=== PATIENT | male | born 1950 | race Two or more races ===

== ENCOUNTER 2020-10-31 03:06 | Emergency (ER) | payer OTHER ==
[~2020-10-31] VITALS: Ht 190.5 cm; Wt 69.9 kg
--- NOTE | 2020-10-31 03:08 | NUR ---
BIBEMS FROM HOME C/O VOMITING BLOOD, PLACED IN BED 8 ON MONITOR AND PULSE OX. PT NOT VOMITING UPON ARRIVAL. VSS. IV PLACED IN RAC 18G, BLOOD COLLECTED, SENT TO LAB. AT BEDSIDE.
[2020-10-31] MEDS ORDERED: ONDANSETRON HCL/PF 4 MG/2 ML VIAL ONE (03:24)
[2020-10-31] MEDS ORDERED: PANTOPRAZOLE 40 MG VIAL ONE (03:24)
[2020-10-31] MEDS ORDERED: PANTOPRAZOLE 40 MG VIAL IV ONE (03:30)
[2020-10-31] MEDS ORDERED: IV NS 0.9% 1,000 ML IV ONE (03:30)
[2020-10-31] MEDS ORDERED: ONDANSETRON HCL/PF 4 MG/2 ML VIAL IV ONE (03:30)
[2020-10-31 03:33] LABS: BASOPHILS % (AUTO) 0.7 % (0.0-2.0); EOSINOPHILS % (AUTO) 4.7 % (0.0-6.0); HEMATOCRIT 36 % (39-51); HEMOGLOBIN 11.9 g/dL (13.5-17.5); LYMPHOCYTES # (AUTO) 1.6 /CMM (0.8-4.8); LYMPHOCYTES % (AUTO) 43.8 % (20.0-44.0); MEAN CORPUSCULAR HGB CONC 33 g/dl (31.0-36.0); MEAN CORPUSCULAR VOLUME 78 fL (80-96); MONOCYTES # (AUTO) 0.2 /CMM (0.1-1.30); MONOCYTES % (AUTO) 5.2 % (2.0-12.0); NEUTROPHILS # (AUTO) 1.6 /CMM (1.8-8.9); NEUTROPHILS % (AUTO) 45.6 % (43.0-81.0); PLATELET COUNT (AUTO) 239 /CMM (150-450); RED BLOOD CELL COUNT(AUTO) 4.64 MIL/uL (4.5-6.0); WHITE BLOOD COUNT (AUTO) 3.6 K/uL (4.3-11.0)
[2020-10-31 03:46] LABS: BILIRUBIN,DIRECT 0.2 mg/dL (0.0-0.2); BILIRUBIN,TOTAL 0.5 mg/dL (0.2-1.0); CALCIUM, SERUM 10.9 mg/dL (8.5-10.1); CREATININE 0.9 mg/dL (0.6-1.3); POTASSIUM 3.8 mmol/L (3.5-5.1); TOTAL PROTEIN, SERUM 7.8 g/dL (6.4-8.2)
[2020-10-31] MEDS ORDERED: MORPHINE SULFATE INJ 4 MG/ML DISP.SYRIN ONE (04:32)
[2020-10-31] MEDS ORDERED: MORPHINE SULFATE INJ 2 MG/ML DISP.SYRIN IV ONE (05:00)
--- NOTE | 2020-10-31 05:32 | NUR ---
CALLED [facility]
--- NOTE | 2020-10-31 05:39 | NUR ---
DR. PETER SPEAKING WITH [facility], DR. MARSH
[2020-10-31] MEDS ORDERED: VANCOMYCIN 1 GM VIAL ONE (05:52)
[2020-10-31] MEDS ORDERED: PIPERACILLIN /TAZOBACTAM 3.375 G VIAL IV ONE (05:52)
--- NOTE | 2020-10-31 05:59 | NUR ---
SPOKE TO , AWARE OF PLAN OF CARE.
[2020-10-31] MEDS ORDERED: PIPERACILLIN /TAZOBACTAM 3.375 G in IV D5W 50 ML IV ONE (06:00)
[2020-10-31] MEDS ORDERED: VANCOMYCIN 1 GM in IV D5W 250 ML IV ONE (06:00)
--- NOTE | 2020-10-31 06:46 | NUR ---
TRANSFER INFORMATION:PT WILL BE TRANSFERRED TO [facility] PER INSURANCE REQUEST ACCEPTING MD: DR. TURCIOS NUMBER FOR REPORT: [phone] [facility] ETA [id number]
--- NOTE | 2020-10-31 06:51 | NUR ---
REPORT GIVEN TO ARTURO ANGLIN FOR DAVID
--- NOTE | 2020-10-31 07:37 | NUR ---
[id number] is on unit, picking up patient going to [facility], patient in stable condition, at bedside, all belongings with , report given to [place], transfer papers done and given to LINNETTE Lemons from ambulance.
[2020-10-31 07:50] VITALS: BP 105/58
== END 2020-10-31 07:51 | disposition short-term general hospital (02) ==
LOC: ER 03:10
DX: J18.9 Pneumonia, unspecified organism (principal); Z20.822 Contact with and (suspected) exposure to COVID-19; E78.5 Hyperlipidemia, unspecified; Z86.73 Personal history of transient ischemic attack (TIA), and cerebral infarction without residual deficits; E11.9 Type 2 diabetes mellitus without complications; I10 Essential (primary) hypertension; Z87.09 Personal history of other diseases of the respiratory system; R04.2 Hemoptysis
CPT/HCPCS: 36415; 71045; 74176; 80048; 80076; 84484; 85025; 85730; 86850; 87040 ×2; 87081; 87426; 93005; 96361; 96365; 96367; 96375; 99285; C9113; C9803; J2270; J2405; J2543; J3370; J7030; J7060

== ENCOUNTER 2020-11-04 13:53 | Emergency (ER) | payer OTHER ==
[~2020-11-04] VITALS: Ht 190.5 cm; Wt 71.2 kg
--- NOTE | 2020-11-04 14:10 | NUR ---
ALIREZA SMITH From Home "AMS/Seizure/weakness- Family described a tonic/clonic seizure like activity". The patient is alert and oriented to self. Speech clear. Denies pain. In room air and denies SOB. Respiration regular and unlabored. Attached to the monitor. Warm blanket provided for comfort. Will continue to monitor the patient.
[2020-11-04 15:05] LABS: BASOPHILS % (AUTO) 0.8 % (0.0-2.0); EOSINOPHILS % (AUTO) 4.4 % (0.0-6.0); HEMATOCRIT 33 % (39-51); HEMOGLOBIN 10.7 g/dL (13.5-17.5); LYMPHOCYTES # (AUTO) 1.2 /CMM (0.8-4.8); MEAN CORPUSCULAR HGB CONC 32 g/dl (31.0-36.0); MEAN CORPUSCULAR VOLUME 78 fL (80-96); MONOCYTES # (AUTO) 0.3 /CMM (0.1-1.30); MONOCYTES % (AUTO) 7.1 % (2.0-12.0); NEUTROPHILS # (AUTO) 2.3 /CMM (1.8-8.9); NEUTROPHILS % (AUTO) 58.7 % (43.0-81.0); PLATELET COUNT (AUTO) 257 /CMM (150-450)
--- NOTE | 2020-11-04 15:06 | NUR ---
The patient is taken to CT in stable condition.
--- NOTE | 2020-11-04 15:20 | NUR ---
The patient is back from CT in stable condition.
--- NOTE | 2020-11-04 15:23 | NUR ---
LAB CALLED. LACTIC ACID IS 2.7
[2020-11-04 15:31] LABS: ALANINE AMINOTRANSFERASE 9 U/L (12-78); ALBUMIN 2.7 g/dL (3.4-5.0); ALKALINE PHOSPHATASE 73 U/L (46-116); ASPARTATE AMINOTRANSFERASE 17 U/L (15-37); BILIRUBIN,DIRECT 0.2 mg/dL (0.0-0.2); BILIRUBIN,TOTAL 0.4 mg/dL (0.2-1.0); CALCIUM, SERUM 10.2 mg/dL (8.5-10.1); CARBON DIOXIDE 28 mmol/L (21-32); CHLORIDE 98 mmol/L (98-107); CREATININE 0.9 mg/dL (0.6-1.3); GLUCOSE 203 mg/dL (74-106); POTASSIUM 3.4 mmol/L (3.5-5.1); SODIUM SERUM 134 mmol/L (136-145); TOTAL PROTEIN, SERUM 7.2 g/dL (6.4-8.2); UREA NITROGEN, BLOOD 8 mg/dL (7-18)
[2020-11-04 15:38] LABS: THYROID STIMULATING HORMONE 0.991 uIU/mL (0.358-3.74)
--- NOTE | 2020-11-04 15:44 | NUR ---
CALLED [facility] AND OPENED A CASE
[2020-11-04 15:56] LABS: SERUM AMMONIA 0 umol/L (11-32)
[2020-11-04] MEDS ORDERED: LEVETIRACETAM (500MG) 1,000 MG in IV NS 0.9% 100 ML IV SCH (16:00)
--- NOTE | 2020-11-04 16:27 | NUR ---
CALLED [facility] FOR ER CONSULT
[2020-11-04] MEDS ORDERED: IV NS 0.9% 1,000 ML BAG IV ONE (16:30)
--- NOTE | 2020-11-04 17:03 | NUR ---
[facility] STARTED LATE BECAUSE THE PATIENT AND THE WERE REFUSING IT INITIALLY.
--- NOTE | 2020-11-04 17:10 | NUR ---
CALLED [facility] TO UPDATE THE VITALS
--- NOTE | 2020-11-04 17:23 | NUR ---
COVID SWAB DONE AND SENT TO THE LAB
[2020-11-04 17:32] LABS: BILIRUBIN,URINE NEGATIVE (NEGATIVE); COLOR,URINE YELLOW (YELLOW); LEUKOCYTE ESTERASE ,URINE NEGATIVE (NEGATIVE); NITRITE, URINE NEGATIVE (NEGATIVE); PH,URINE 5.5 (5.0-8.0); PROTEIN,URINE TRACE mg/dl (NEGATIVE); UGLUCOSE NEGATIVE (NEGATIVE)
[2020-11-04 17:42] LABS: BACTERIA,URINE RARE /HPF (None Seen); MUCUS,URINE Few /LPF (None Seen)
[2020-11-04 17:43] LABS: URINE AMORPHOUS URATE Few /HPF (None Seen)
--- NOTE | 2020-11-04 18:46 | NUR ---
CALLED [facility] FOR TRANSFER INFO. THEY ARE STILL WORKING ON IT AND WILL CALL BACK
--- NOTE | 2020-11-04 19:20 | NUR ---
Report given to Estela from [facility]
--- NOTE | 2020-11-04 19:27 | NUR ---
TRANSFER INFORMATION: PT WILL BE TRANSFERRED TO [facility] PER INSURANCE REQUEST ACCEPTING MD: DR. STEWART NUMBER FOR REPORT: [phone] BED ASSIGNMENT: [id number] [facility] ETA [id number]
--- NOTE | 2020-11-04 19:33 | NUR ---
The patient is transfered to [facility] in stable condition.
[2020-11-04 20:07] VITALS: BP 102/56
== END 2020-11-04 19:40 | disposition short-term general hospital (02) ==
LOC: ER 13:58
DX: R56.9 Unspecified convulsions (principal); E87.2 Acidosis; E11.65 Type 2 diabetes mellitus with hyperglycemia; R94.31 Abnormal electrocardiogram [ECG] [EKG]; R29.810 Facial weakness; Z86.19 Personal history of other infectious and parasitic diseases; Z20.822 Contact with and (suspected) exposure to COVID-19; E78.5 Hyperlipidemia, unspecified; Z86.73 Personal history of transient ischemic attack (TIA), and cerebral infarction without residual deficits; R91.8 Other nonspecific abnormal finding of lung field; R05 Cough
CPT/HCPCS: 36415; 70450; 71045; 80048; 80076; 81001; 82140; 83605 ×2; 83880; 84443; 84484; 85025; 85730; 87040 ×2; 87426; 93005; 96365; 99291; C9803; J1953; J7030 ×2